=== PATIENT | female | born 1975 | race African-American/Black ===

== ENCOUNTER 2016-05-25 22:05 | Emergency (ER) | payer OTHER, BC ==
[~2016-05-25] VITALS: Ht 167.6 cm; Wt 62.7 kg
[~2016-05-25 22:05] MED LIST: GLIPIZIDE5 MG PO; LANTUS 10100 UNITS/ SC; NAPROXEN500 MG PO; NOVOLIN 70/30
[2016-05-25 23:12] VITALS: BP 119/86
== END 2016-05-25 23:15 | disposition other institution (70) ==
LOC: EME 22:05
DX: S30.1XXA Contusion of abdominal wall, initial encounter (principal); Y04.0XXA Assault by unarmed brawl or fight, initial encounter
CPT/HCPCS: 99281; 99283

== ENCOUNTER 2017-01-11 23:15 | Emergency (ER) | payer BC ==
[~2017-01-11] VITALS: Ht 167.6 cm; Wt 66.7 kg
[2017-01-11 23:43] LABS: MCHC 34.5 G/DL (30.0-36.0); MCV 89.6 FL (83-99); MEAN PLAT.VOLUME 9.9 uM^3 (9.5-12.4); PLATELET COUNT 345 K/uL (156-360); RBC DIS.WIDTH-SD 39.5 % (39-53); RED BLOOD COUNT 4.91 M/uL (3.80-5.20); WHITE BLOOD COUNT 11.9 K/uL (4.1-10.2)
[2017-01-11 23:51] LABS: CHLORIDE 103 mEq/L (99-109); POTASSIUM 3.9 mEq/L (3.7-5.4); SODIUM 136 mEq/L (136-147)
[2017-01-11 23:54] LABS: ANION GAP 12 MEQ/L (2-14)
[2017-01-11 23:56] LABS: GFR ESTIMATE (CALCULATED) > 59 mL/min/
[2017-01-11 23:57] LABS: UREA NITROGEN (BUN) 14 mg/dL (9-23)
[2017-01-12 00:02] LABS: TROP-I INTERPRETATION NEGATIVE; TROPONIN-I < 0.01 ng/mL (0.0-0.30)
[2017-01-12 00:05] LABS: GLUCOSE 397 mg/dL (70-99)
[2017-01-12 01:02] LABS: D-DIMER ELISA < 150.00 ng/mLDDU (<230)
[2017-01-12 02:39] LABS: TROP-I INTERPRETATION NEGATIVE; TROPONIN-I < 0.01 ng/mL (0.0-0.30)
[2017-01-12 03:36] LABS: ADD MIUA? YES; BILIRUBIN NEGATIVE; BLOOD MODERATE; COLOR YELLOW ((YELLOW)); GLUCOSE (STRIP) >=500; KETONES 5; LEUKOCYTES NEGATIVE; NITRITE NEGATIVE; PROTEIN (STRIP) NEGATIVE; UROBILINOGEN 0.2 MG/DL (0.2-1.0)
[2017-01-12 03:41] LABS: BACTERIA NONE SEEN /HPF; EPITHELIAL CELLS RARE /HPF; MUCUS TRACE /LPF; RED BLOOD CELLS 0-5 /HPF (0-5); UCUL ADDED? NO; WHITE BLOOD CELLS 0-5 /HPF (0-5)
[2017-01-12 04:04] LABS: SPECIFIC GRAVITY 1.072 (1.000-1.030)
[2017-01-12 05:44] VITALS: BP 130/84
[2017-01-12 10:28] LABS: INTERNAL CONTROL VALID? YES
== END 2017-01-12 05:46 | disposition home or self-care (01) ==
LOC: EME 23:15
PROVIDERS: Emergency Medicine
DX: R07.9 Chest pain, unspecified (principal); R10.13 Epigastric pain; F41.9 Anxiety disorder, unspecified; M25.519 Pain in unspecified shoulder; Z90.49 Acquired absence of other specified parts of digestive tract; E11.9 Type 2 diabetes mellitus without complications; Z79.4 Long term (current) use of insulin; F17.200 Nicotine dependence, unspecified, uncomplicated
CPT/HCPCS: 71020; 71260; 80048; 81003; 84484; 85027; 85379; 87449; 93005; 99281; 99285; J7030